=== PATIENT | female | born 1940 | race Caucasian/White ===

== ENCOUNTER 2016-10-15 09:48 | Emergency (ER) | payer OTHER ==
[~2016-10-15] VITALS: Ht 162.6 cm; Wt 51.4 kg
[~2016-10-15 09:48] MED LIST: ALPRAZOLAM0.5 MG PO; CAPOTEN12.5 MG PO; CAPTOPRIL12.5 MG PO; COUMADIN,JANTO2.5 MG PO; COUMADIN2 MG PO; COUMADIN3 MG PO; COUMADIN4 MG PO; COUMADIN5 MG PO; DOCUSATE SODIU100 MG PO; ENEMA READY TO135 M1 PR; FIORICET 50-301 EACH PO; FIORICET,ESG1 TABLET PO; FUROSEMIDE20 MG PO; HYDROCODON-ACE1 EAC7 PO; HYDROCODON-ACE1 EACH PO; KEFLEX500 MG PO; KRISTALOSE20 GM PO; LASIX10 MG PO; LASIX20 MG PO; LEVO-T88 MCG PO; MILK OF MAGN PO; NORCO 5/3251 TABLET PO; PYRIDIUM200 MG PO; SIMVASTATIN20 MG PO; SIMVASTATIN40 MG PO; STAGESIC 5-5001 EACH PO; SYSTANE ULTRA 015 ML BOTH EYES; WARFARIN SODIUM2 MG PO; WARFARIN SODIUM3 MG PO; XANAX0.5 MG PO; ZITHROMAX Z-PA250 MG PO; ZOCOR20 MG PO
[2016-10-15 10:20] LABS: ADD MIUA? YES; BILIRUBIN NEGATIVE; BLOOD SMALL; COLOR YELLOW ((YELLOW)); GLUCOSE (STRIP) NEGATIVE; KETONES NEGATIVE; LEUKOCYTES LARGE; NITRITE NEGATIVE; PH, URINE 7.5 (5-8); PROTEIN (STRIP) NEGATIVE; SPECIFIC GRAVITY 1.012 (1.000-1.030); UROBILINOGEN 0.2 MG/DL (0.2-1.0)
[2016-10-15 10:41] LABS: BACTERIA RARE /HPF; CASTS PRESENT /LPF; CRYSTALS NONE SEEN; EPITHELIAL CELLS RARE /HPF; MUCUS 1+ /LPF; UCUL ADDED? NO
[2016-10-15] MEDS ORDERED: PYRIDIUM100 MG PO (11:09)
[2016-10-15] MEDS ORDERED: MACROBID100 MG PO (11:09)
[2016-10-15 11:22] LABS: POINT-OF-CARE METER ID UU13113702
[2016-10-15 11:26] VITALS: BP 134/72
== END 2016-10-15 11:27 | disposition home or self-care (01) ==
LOC: EME 09:48
PROVIDERS: Physician Assistant
DX: R30.0 Dysuria (principal); I61.4 Nontraumatic intracerebral hemorrhage in cerebellum; G89.29 Other chronic pain; Z95.0 Presence of cardiac pacemaker; Z95.2 Presence of prosthetic heart valve; Z79.01 Long term (current) use of anticoagulants; Z88.1 Allergy status to other antibiotic agents; Z88.5 Allergy status to narcotic agent; Z88.8 Allergy status to other drugs, medicaments and biological substances
CPT/HCPCS: 81003; 82948; 99281; 99284

== ENCOUNTER 2016-12-10 12:20 | Emergency (ER) | payer OTHER ==
[~2016-12-10] VITALS: Ht 162.6 cm; Wt 51.9 kg
[~2016-12-10 12:20] MED LIST changes: +MACROBID100 MG PO; +PYRIDIUM100 MG PO
[2016-12-10 14:16] LABS: ADD MIUA? YES; BILIRUBIN NEGATIVE; BLOOD MODERATE; COLOR YELLOW ((YELLOW)); GLUCOSE (STRIP) NEGATIVE; KETONES NEGATIVE; LEUKOCYTES MODERATE; NITRITE NEGATIVE; PROTEIN (STRIP) NEGATIVE; UROBILINOGEN 0.2 MG/DL (0.2-1.0)
[2016-12-10 14:34] LABS: EOSINOPHIL COUNT 0.1 K/uL (0-0.3); HEMATOCRIT 38.7 % (36.0-46.0); IMMATURE GRANULOCYTE (%) 0.1 % (0.0-0.7); INSTRUMENT ABS NEUTROPHIL CT 6.4 K/uL; LYMPHOCYTE COUNT 2.1 K/uL (1.0-2.8); MCH 29.2 PG (29.0-34.0); MCHC 33.3 G/DL (30.0-36.0); MCV 87.6 FL (83-99); MEAN PLAT.VOLUME 9.8 uM^3 (9.5-12.4); MONOCYTE (%) 6.4 % (3-12); MONOCYTE COUNT 0.6 K/uL (0-0.8); NEUTROPHIL (%) 69.5 % (45-76); NEUTROPHIL COUNT 6.4 K/uL (1.8-6.4); PLATELET COUNT 220 K/uL (156-360); RBC DIS.WIDTH-CV 12.5 % (11.8-14.6); RBC DIS.WIDTH-SD 40.2 % (39-53); RED BLOOD COUNT 4.42 M/uL (3.80-5.20); WHITE BLOOD COUNT 9.2 K/uL (4.1-10.2)
[2016-12-10 14:36] LABS: BACTERIA RARE /HPF; EPITHELIAL CELLS RARE /HPF; MUCUS RARE /LPF; UCUL ADDED? NO
[2016-12-10 14:47] LABS: INTER. NORMALIZED RATIO 3.2; PROTHROMBIN TIME 33.5 (9.2-11.2)
[2016-12-10 14:52] LABS: CHLORIDE 103 mEq/L (99-109); POTASSIUM 4.5 mEq/L (3.7-5.4); SODIUM 141 mEq/L (136-147)
[2016-12-10 14:55] LABS: GLUCOSE 98 mg/dL (70-99)
[2016-12-10 14:56] LABS: ANION GAP 11 MEQ/L (2-14)
[2016-12-10 14:57] LABS: TOTAL BILIRUBIN 0.8 mg/dL (0.0-1.0)
[2016-12-10 14:58] LABS: ALKALINE PHOSPHATASE 68 IU/L (3-129); GFR ESTIMATE (CALCULATED) > 59 mL/min/
[2016-12-10 14:59] LABS: UREA NITROGEN (BUN) 12 mg/dL (9-23)
[2016-12-10] MEDS ORDERED: KEFLEX500 MG PO (16:05)
[2016-12-10 16:10] VITALS: BP 124/67
== END 2016-12-10 16:20 | disposition home or self-care (01) ==
LOC: EME 12:20
PROVIDERS: Emergency Medicine
DX: N39.0 Urinary tract infection, site not specified (principal); Z87.440 Personal history of urinary (tract) infections; Z87.442 Personal history of urinary calculi; Z95.2 Presence of prosthetic heart valve; Z95.0 Presence of cardiac pacemaker; Z79.01 Long term (current) use of anticoagulants
CPT/HCPCS: 74176; 80053; 81003; 85025; 85610; 87086; 99281; 99284

== ENCOUNTER 2017-03-01 07:07 | Emergency (ER) | payer OTHER ==
[~2017-03-01] VITALS: Ht 162.6 cm; Wt 52.3 kg
[2017-03-01 08:20] LABS: HEMATOCRIT 39.6 % (36.0-46.0); MCH 29.7 PG (29.0-34.0); MCHC 33.3 G/DL (30.0-36.0); MEAN PLAT.VOLUME 10.5 uM^3 (9.5-12.4); PLATELET COUNT 204 K/uL (156-360); RBC DIS.WIDTH-CV 12.6 % (11.8-14.6); RBC DIS.WIDTH-SD 41.2 % (39-53); RED BLOOD COUNT 4.45 M/uL (3.80-5.20); WHITE BLOOD COUNT 11.7 K/uL (4.1-10.2)
[2017-03-01 08:30] LABS: INTER. NORMALIZED RATIO 3.2; PROTHROMBIN TIME 34.1 (9.2-11.2); PTT 44.1 (25-32)
[2017-03-01 08:55] LABS: ANION GAP 7 MEQ/L (2-14); CHLORIDE 102 MEQ/L (99-109); GFR ESTIMATE (CALCULATED) > 59 mL/min/; GLUCOSE 106 mg/dL (70-99); POTASSIUM 3.8 MEQ/L (3.7-5.4); SAMPLE HEMOLYSIS CHECK 0; SAMPLE ICTERIC CHECK 0; SAMPLE LIPEMIA CHECK 0; SODIUM 140 MEQ/L (136-147); UREA NITROGEN (BUN) 18 mg/dL (9-23)
[2017-03-01 08:58] LABS: ADD MIUA? YES; BILIRUBIN NEGATIVE; BLOOD LARGE; COLOR YELLOW ((YELLOW)); GLUCOSE (STRIP) NEGATIVE; KETONES NEGATIVE; LEUKOCYTES LARGE; NITRITE NEGATIVE; PROTEIN (STRIP) 100; SPECIFIC GRAVITY 1.014 (1.000-1.030); UROBILINOGEN 0.2 MG/DL (0.2-1.0)
[2017-03-01 09:16] LABS: BACTERIA 2+ /HPF; EPITHELIAL CELLS NONE SEEN /HPF; MUCUS NONE SEEN /LPF; RED BLOOD CELLS 30-40 /HPF (0-5); UCUL ADDED? YES; WHITE BLOOD CELLS TNTC /HPF (0-5)
[2017-03-01] MEDS ORDERED: OMNICEF300 MG PO (09:36)
[2017-03-01 10:43] VITALS: BP 148/67
== END 2017-03-01 10:46 | disposition home or self-care (01) ==
LOC: EME 07:07
PROVIDERS: Emergency Medicine
DX: N39.0 Urinary tract infection, site not specified (principal); R51 Headache; H92.01 Otalgia, right ear; Z87.442 Personal history of urinary calculi; Z95.0 Presence of cardiac pacemaker; Z95.4 Presence of other heart-valve replacement; Z79.01 Long term (current) use of anticoagulants
CPT/HCPCS: 70450; 80048; 81003; 85027; 85610; 85730; 87077; 87086; 87186; 99281; 99285

== ENCOUNTER 2017-05-16 07:59 | Emergency (ER) | payer OTHER ==
[~2017-05-16] VITALS: Ht 162.6 cm; Wt 51.0 kg
[~2017-05-16 07:59] MED LIST changes: +OMNICEF300 MG PO
[2017-05-16 08:33] LABS: EOSINOPHIL (%) 2.2 % (0-5); EOSINOPHIL COUNT 0.2 K/uL (0-0.3); HEMATOCRIT 38.6 % (36.0-46.0); IMMATURE GRANULOCYTE (%) 0.1 % (0.0-0.7); INSTRUMENT ABS NEUTROPHIL CT 3.8 K/uL; LYMPHOCYTE COUNT 2.8 K/uL (1.0-2.8); MCH 29.5 PG (29.0-34.0); MCHC 33.4 G/DL (30.0-36.0); MCV 88.1 FL (83-99); MEAN PLAT.VOLUME 9.9 uM^3 (9.5-12.4); MONOCYTE (%) 9.7 % (3-12); MONOCYTE COUNT 0.7 K/uL (0-0.8); NEUTROPHIL (%) 50.2 % (45-76); NEUTROPHIL COUNT 3.8 K/uL (1.8-6.4); PLATELET COUNT 216 K/uL (156-360); RBC DIS.WIDTH-CV 12.1 % (11.8-14.6); RBC DIS.WIDTH-SD 39.6 % (39-53); RED BLOOD COUNT 4.38 M/uL (3.80-5.20); WHITE BLOOD COUNT 7.6 K/uL (4.1-10.2)
[2017-05-16 08:38] LABS: ADD MIUA? YES; BILIRUBIN NEGATIVE; BLOOD MODERATE; COLOR AMBER ((YELLOW)); GLUCOSE (STRIP) NEGATIVE; KETONES NEGATIVE; LEUKOCYTES TRACE; NITRITE POSITIVE; PROTEIN (STRIP) 30; SPECIFIC GRAVITY 1.009 (1.000-1.030)
[2017-05-16 08:39] LABS: INTER. NORMALIZED RATIO 3.9; PROTHROMBIN TIME 45.7 SEC (10.2-12.9)
[2017-05-16 08:43] LABS: CHLORIDE 103 mEq/L (99-109); POTASSIUM 3.5 mEq/L (3.7-5.4); SODIUM 140 mEq/L (136-147)
[2017-05-16 08:45] LABS: GLUCOSE 110 mg/dL (70-99)
[2017-05-16 08:47] LABS: ANION GAP 9 MEQ/L (2-14)
[2017-05-16 08:48] LABS: BACTERIA RARE /HPF; CALCIUM OXALATE CRYSTALS 1+ /HPF; EPITHELIAL CELLS RARE /HPF; MUCUS TRACE /LPF; UCUL ADDED? YES; WHITE BLOOD CELLS TNTC /HPF (0-5)
[2017-05-16 08:49] LABS: GFR ESTIMATE (CALCULATED) > 59 mL/min/
[2017-05-16 08:50] LABS: UREA NITROGEN (BUN) 10 mg/dL (9-23)
[2017-05-16] MEDS ORDERED: LEVAQUIN500 MG PO (11:35)
[2017-05-16 11:46] VITALS: BP 138/54
== END 2017-05-16 11:48 | disposition home or self-care (01) ==
LOC: EME 07:59
PROVIDERS: Emergency Medicine
DX: N39.0 Urinary tract infection, site not specified (principal); Z87.442 Personal history of urinary calculi; Z95.2 Presence of prosthetic heart valve; Z95.0 Presence of cardiac pacemaker
CPT/HCPCS: 74176; 80048; 81003; 85025; 85610; 87077; 87086; 87186; 93005; 99281; 99284

== ENCOUNTER → 2017-05-22 19:45 | Emergency (ER) | payer OTHER ==
[~2017-05-22] VITALS: Ht 162.6 cm; Wt 51.6 kg
[~2017-05-22 19:45] MED LIST changes: +LEVAQUIN500 MG PO; +ROXICODONE5 MG PO
[2017-05-22 19:54] VITALS: BP 134/110
== END | disposition left against medical advice (07) ==
LOC: EME 19:45
DX: M79.604 Pain in right leg (principal); Z53.21 Procedure and treatment not carried out due to patient leaving prior to being seen by health care provider

== ENCOUNTER 2017-05-24 09:13 | Emergency (ER) | payer OTHER ==
[~2017-05-24] VITALS: Ht 162.6 cm; Wt 51.8 kg
[~2017-05-24 09:13] MED LIST changes: -ROXICODONE5 MG PO
[2017-05-24 10:46] LABS: HEMATOCRIT 41.8 % (36.0-46.0); MCH 29.4 PG (29.0-34.0); MCV 89.1 FL (83-99); MEAN PLAT.VOLUME 10.1 uM^3 (9.5-12.4); PLATELET COUNT 227 K/uL (156-360); RBC DIS.WIDTH-CV 12.2 % (11.8-14.6); RBC DIS.WIDTH-SD 39.7 % (39-53); RED BLOOD COUNT 4.69 M/uL (3.80-5.20)
[2017-05-24 10:57] LABS: CHLORIDE 104 mEq/L (99-109); SODIUM 144 mEq/L (136-147)
[2017-05-24 10:58] LABS: GLUCOSE 107 mg/dL (70-99)
[2017-05-24 11:00] LABS: ANION GAP 11 MEQ/L (2-14)
[2017-05-24 11:02] LABS: GFR ESTIMATE (CALCULATED) > 59 mL/min/
[2017-05-24 11:03] LABS: UREA NITROGEN (BUN) 12 mg/dL (9-23)
[2017-05-24 11:15] LABS: ERTH.SED.RATE 11 MM/HR (0-30)
[2017-05-24] MEDS ORDERED: ROXICODONE5 MG PO (12:30)
[2017-05-24 12:59] VITALS: BP 135/47
== END 2017-05-24 13:01 | disposition home or self-care (01) ==
LOC: EME 09:13
PROVIDERS: Emergency Medicine
DX: M79.604 Pain in right leg (principal); Z87.442 Personal history of urinary calculi; Z87.440 Personal history of urinary (tract) infections; Z79.01 Long term (current) use of anticoagulants; Z87.891 Personal history of nicotine dependence
CPT/HCPCS: 80048; 85027; 85651; 93971; 99281; 99284; J2270

== ENCOUNTER 2017-09-25 17:24 | Emergency (ER) | payer OTHER, MEDICARE ==
[~2017-09-25] VITALS: Ht 162.6 cm; Wt 51.3 kg
[~2017-09-25 17:24] MED LIST changes: +ROXICODONE5 MG PO
[2017-09-25 19:03] LABS: HEMATOCRIT 40.7 % (36.0-46.0); HEMOGLOBIN 13.9 G/DL (11.9-15.5); MCH 30.4 PG (29.0-34.0); MCHC 34.2 G/DL (30.0-36.0); MCV 89.1 FL (83-99); PLATELET COUNT 260 K/uL (156-360); RBC DIS.WIDTH-CV 12.1 % (11.8-14.6); RBC DIS.WIDTH-SD 39.4 % (39-53); RED BLOOD COUNT 4.57 M/uL (3.80-5.20); WHITE BLOOD COUNT 7.2 K/uL (4.1-10.2)
[2017-09-25 19:10] LABS: INTER. NORMALIZED RATIO 2.4
[2017-09-25 19:11] LABS: PTT 41.5 SEC (25-37)
[2017-09-25 19:14] LABS: CHLORIDE 101 mEq/L (99-109); SODIUM 140 mEq/L (136-147)
[2017-09-25 19:16] LABS: GLUCOSE 100 mg/dL (70-99)
[2017-09-25 19:20] LABS: CREATININE 0.9 mg/dL (0.6-1.3); GFR ESTIMATE (CALCULATED) > 59 mL/min/
[2017-09-25 19:21] LABS: UREA NITROGEN (BUN) 15 mg/dL (9-23)
[2017-09-25 20:07] VITALS: BP 149/64
== END 2017-09-25 20:07 | disposition home or self-care (01) ==
LOC: EME 17:24
DX: R51 Headache (principal); M26.601 Right temporomandibular joint disorder, unspecified; Z79.01 Long term (current) use of anticoagulants; F41.9 Anxiety disorder, unspecified; Z95.0 Presence of cardiac pacemaker; Z87.891 Personal history of nicotine dependence; Z88.1 Allergy status to other antibiotic agents; Z88.8 Allergy status to other drugs, medicaments and biological substances
CPT/HCPCS: 70450; 80048; 85027; 85610; 85730; 99281; 99283

== ENCOUNTER 2017-10-09 15:38 | Emergency (ER) | payer OTHER, MEDICARE ==
[~2017-10-09] VITALS: Ht 162.6 cm; Wt 50.6 kg
[2017-10-09 15:52] VITALS: BP 141/67
[2017-10-09] MEDS ORDERED: PREDNISONE20 MG PO (17:40)
[2017-10-09] MEDS ORDERED: PERCOCET 5/31 TABLET PO (17:41)
== END 2017-10-09 18:11 | disposition home or self-care (01) ==
LOC: EME 15:38
DX: M54.31 Sciatica, right side (principal); Z95.2 Presence of prosthetic heart valve; Z88.5 Allergy status to narcotic agent; Z88.8 Allergy status to other drugs, medicaments and biological substances; Z88.0 Allergy status to penicillin
CPT/HCPCS: 99281; 99283; J7512

== ENCOUNTER 2017-11-18 12:19 | Emergency (ER) | payer OTHER, MEDICARE ==
[~2017-11-18] VITALS: Ht 162.6 cm; Wt 49.9 kg
[~2017-11-18 12:19] MED LIST changes: +PERCOCET 5/31 TABLET PO; +PREDNISONE20 MG PO
[2017-11-18] MEDS ORDERED: SKELAXIN800 MG PO (13:59)
[2017-11-18] MEDS ORDERED: LIDODERM 5% P1 PATCH TD (13:59)
[2017-11-18 14:00] VITALS: BP 117/56
== END 2017-11-18 14:36 | disposition home or self-care (01) ==
LOC: EME 12:19
DX: M54.41 Lumbago with sciatica, right side (principal); D64.9 Anemia, unspecified; G43.909 Migraine, unspecified, not intractable, without status migrainosus; Z95.2 Presence of prosthetic heart valve; Z95.0 Presence of cardiac pacemaker; Z87.891 Personal history of nicotine dependence; Z87.442 Personal history of urinary calculi; Z88.0 Allergy status to penicillin; Z91.041 Radiographic dye allergy status
CPT/HCPCS: 99281; 99284; J3010

== ENCOUNTER 2018-02-05 11:16 | Emergency (ER) | payer OTHER, MEDICARE ==
[~2018-02-05] VITALS: Ht 162.6 cm; Wt 51.3 kg
[~2018-02-05 11:16] MED LIST changes: +LIDODERM 5% P1 PATCH TD; +SKELAXIN800 MG PO
[2018-02-05 13:33] LABS: BASOPHIL (%) 0.5 % (0-1); EOSINOPHIL (%) 1.4 % (0-5); EOSINOPHIL COUNT 0.1 K/uL (0-0.3); HEMATOCRIT 39.4 % (36.0-46.0); HEMOGLOBIN 13.3 G/DL (11.9-15.5); IMMATURE GRANULOCYTE (%) 0.2 % (0.0-0.7); LYMPHOCYTE (%) 37.7 % (15-42); LYMPHOCYTE COUNT 2.5 K/uL (1.0-2.8); MCH 30.6 PG (29.0-34.0); MCHC 33.8 G/DL (30.0-36.0); MCV 90.8 FL (83-99); MONOCYTE (%) 7.8 % (3-12); MONOCYTE COUNT 0.5 K/uL (0-0.8); NEUTROPHIL (%) 52.4 % (45-76); NEUTROPHIL COUNT 3.4 K/uL (1.8-6.4); PLATELET COUNT 243 K/uL (156-360); RBC DIS.WIDTH-CV 12.6 % (11.8-14.6); RBC DIS.WIDTH-SD 41.8 % (39-53); RED BLOOD COUNT 4.34 M/uL (3.80-5.20); WHITE BLOOD COUNT 6.5 K/uL (4.1-10.2)
[2018-02-05 13:38] LABS: INTER. NORMALIZED RATIO 2.4
[2018-02-05 13:41] LABS: CHLORIDE 103 mEq/L (99-109); POTASSIUM 4.4 mEq/L (3.7-5.4); SODIUM 142 mEq/L (136-147)
[2018-02-05 13:43] LABS: GLUCOSE 95 mg/dL (70-99)
[2018-02-05 13:47] LABS: CREATININE 0.9 mg/dL (0.6-1.3); GFR ESTIMATE (CALCULATED) > 59 mL/min/
[2018-02-05 13:48] LABS: UREA NITROGEN (BUN) 15 mg/dL (9-23)
[2018-02-05 14:13] VITALS: BP 154/69
[2018-02-08] MEDS ORDERED: VITAMIN D31000 UNIT PO (16:23)
[2018-02-08] MEDS ORDERED: LEVOTHYROXINE50 MCG PO (16:23)
[2018-02-08] MEDS ORDERED: TUMS500 MG PO (16:23)
[2018-02-08] MEDS ORDERED: HYDROCODON-ACE1 EAC7 PO (16:24)
== END 2018-02-05 14:13 | disposition home or self-care (01) ==
LOC: EME 11:16
PROVIDERS: Physician Assistant
DX: M17.11 Unilateral primary osteoarthritis, right knee (principal); S90.112A Contusion of left great toe without damage to nail, initial encounter; Z79.01 Long term (current) use of anticoagulants; G43.909 Migraine, unspecified, not intractable, without status migrainosus; F41.9 Anxiety disorder, unspecified; Z86.79 Personal history of other diseases of the circulatory system; Z85.850 Personal history of malignant neoplasm of thyroid; Z87.442 Personal history of urinary calculi; Z87.440 Personal history of urinary (tract) infections; Z95.2 Presence of prosthetic heart valve; Z95.0 Presence of cardiac pacemaker; Z88.0 Allergy status to penicillin; Z88.5 Allergy status to narcotic agent; Z88.8 Allergy status to other drugs, medicaments and biological substances; Z91.041 Radiographic dye allergy status
CPT/HCPCS: 73564; 73660; 80048; 85025; 85610; 85730; 99281; 99284

== ENCOUNTER 2018-02-12 10:00 | Day surgery (SDC) | payer OTHER, MEDICARE ==
[~2018-02-12] VITALS: Ht 162.6 cm; Wt 50.0 kg
[~2018-02-12 10:00] MED LIST changes: +LEVOTHYROXINE50 MCG PO; +TUMS500 MG PO; +VITAMIN D31000 UNIT PO
== END 2018-02-12 13:15 | disposition home or self-care (01) ==
LOC: CATH 10:00
DX: Z45.010 Encounter for checking and testing of cardiac pacemaker pulse generator [battery] (principal); I44.2 Atrioventricular block, complete; I35.1 Nonrheumatic aortic (valve) insufficiency; E78.5 Hyperlipidemia, unspecified; I10 Essential (primary) hypertension; Z79.01 Long term (current) use of anticoagulants; Z95.2 Presence of prosthetic heart valve
CPT/HCPCS: C1786; J0690; J1200; J2250; J3010; S0020

== ENCOUNTER 2018-04-23 09:29 | Emergency (ER) | payer OTHER, MEDICARE ==
[~2018-04-23] VITALS: Ht 162.6 cm; Wt 50.5 kg
[2018-04-23 09:59] LABS: HEMATOCRIT 40.9 % (36.0-46.0); HEMOGLOBIN 13.7 G/DL (11.9-15.5); MCH 30.9 PG (29.0-34.0); MCHC 33.5 G/DL (30.0-36.0); MCV 92.1 FL (83-99); PLATELET COUNT 226 K/uL (156-360); RBC DIS.WIDTH-CV 12.5 % (11.8-14.6); RED BLOOD COUNT 4.44 M/uL (3.80-5.20); WHITE BLOOD COUNT 5.6 K/uL (4.1-10.2)
[2018-04-23 10:09] LABS: CHLORIDE 102 mEq/L (99-109); POTASSIUM 4.3 mEq/L (3.7-5.4); SODIUM 143 mEq/L (136-147)
[2018-04-23 10:11] LABS: GLUCOSE 106 mg/dL (70-99)
[2018-04-23 10:15] LABS: CREATININE 0.9 mg/dL (0.6-1.3); GFR ESTIMATE (CALCULATED) > 59 mL/min/
[2018-04-23 10:16] LABS: UREA NITROGEN (BUN) 12 mg/dL (9-23)
[2018-04-23 10:21] LABS: TROP-I INTERPRETATION NEGATIVE; TROPONIN-I < 0.01 ng/mL (0.0-0.30)
[2018-04-23 11:59] LABS: PTT 46.6 SEC (25-37)
[2018-04-23 12:02] LABS: INTER. NORMALIZED RATIO 3.8
[2018-04-23 13:54] LABS: TROP-I INTERPRETATION NEGATIVE; TROPONIN-I < 0.01 ng/mL (0.0-0.30)
[2018-04-23 14:06] VITALS: BP 129/47
== END 2018-04-23 14:09 | disposition home or self-care (01) ==
LOC: EME 09:29
PROVIDERS: Physician Assistant
DX: N64.4 Mastodynia (principal); R79.1 Abnormal coagulation profile; M19.90 Unspecified osteoarthritis, unspecified site; Z79.891 Long term (current) use of opiate analgesic; Z79.01 Long term (current) use of anticoagulants; Z87.891 Personal history of nicotine dependence; Z86.69 Personal history of other diseases of the nervous system and sense organs; Z86.79 Personal history of other diseases of the circulatory system; Z95.0 Presence of cardiac pacemaker; Z95.2 Presence of prosthetic heart valve; Z87.442 Personal history of urinary calculi; Z87.440 Personal history of urinary (tract) infections; Z98.890 Other specified postprocedural states; Z90.49 Acquired absence of other specified parts of digestive tract; Z85.850 Personal history of malignant neoplasm of thyroid; Z88.5 Allergy status to narcotic agent; Z88.0 Allergy status to penicillin; Z91.041 Radiographic dye allergy status; Z88.8 Allergy status to other drugs, medicaments and biological substances
CPT/HCPCS: 71046; 80048; 84484; 85027; 85610; 85730; 93005; 99281; 99284